=== PATIENT | male | born 1945 | race Caucasian/White ===

== ENCOUNTER → 2025-06-18 13:52 | Outpatient (CLI) | payer MEDICARE, MEDICAID, SELFPAY ==
--- NOTE | 2025-06-18 13:55 | DI.RAD.S_ITS ---
PROCEDURE: XR WRIST RT MIN 3V INDICATIONS[place] Happened 1 week ago TECHNIQUE: 3 views of the wrist were acquired. COMPARISON: None. FINDINGS AND IMPRESSION: Moderately impacted distal radius fracture. Mild background degenerative changes. Cast material in place obscuring bony details. Dictated by: Arvind Flaherty M.D. on 06/18/2025 at 14:47 Approved by: Arvind Flaherty M.D. on 06/18/2025 at 14:48
== END ==
PROVIDERS: Referring Provider Nurse Practitioner Family; Visit Provider Nurse Practitioner Family
DX: S52.501A Unspecified fracture of the lower end of right radius, initial encounter for closed fracture (principal); X58.XXXA Exposure to other specified factors, initial encounter
CPT/HCPCS: 73110